=== PATIENT | female | born 1960 | race Caucasian/White ===

== ENCOUNTER → 2022-05-10 | Outpatient (CLI) | payer MEDICAID, SELFPAY ==
--- NOTE | 2022-05-10 11:17 | EKG12_ITS ---
Test Reason : PREOP Blood Pressure : / mmHG Vent. Rate : 097 BPM Atrial Rate : 097 BPM P-R Int : 168 ms QRS Dur : 070 ms QT Int : 374 ms P-R-T Axes : 060 -11 059 degrees QTc Int : 474 ms Normal sinus rhythm Normal ECG Confirmed by STACIE PETERSON, LEIGHA ([id number]), film editor supervisor DELPHINE RAMÍREZ ([id number]) on 05/11/2022 9:57:06 AM Referred By: EBEN PALMER Confirmed By:FRANCY QUINONES MD
--- NOTE | 2022-05-10 11:30 | CT_ITS ---
STUDY: CT RIGHT SHOULDER REASON FOR EXAM: Female, 62 years old. DISHA ESPARZA RADIATION DOSAGE (If Supplied By Facility): CTDIvol = ( 27.08 ) mGy, DLP = ( 676.55 ) mGycm TECHNIQUE: The patient was scanned in a multi detector CT scanner. High resolution transaxial imaging was performed without the administration of intravenous contrast material. Sagittal and coronal images were reconstructed. Individualized dose optimization techniques were used for this CT. COMPARISON: None. FINDINGS: Normal glenohumeral articulation. There is evidence of a nondisplaced fracture of the coracoid process of the scapula. There is an impacted comminuted fracture of the surgical neck of the proximal humerus with extension into the greater and lesser tuberosities. Normal coracoid process. Normal visualized lateral clavicle. Normal acromioclavicular articulation. There is a Type II morphology (curved), with a neutral orientation. Soft tissue swelling. Small amount of air is seen within the shoulder joint. CT/Extremity Upper without Contra IMPRESSION: Comminuted impacted fracture of the surgical neck of the humerus with extension to the greater and lesser tuberosities. Nondisplaced fracture of the anterior aspect of the coracoid process of the scapula. Electronically Signed: Jr Khan MD at 11:57 EDT ,
--- NOTE | 2022-05-10 11:52 | RAD_ITS ---
INDICATION: PREPROCEDURAL RESPIRATORY EXAMINATION EXAMINATION/TECHNIQUE: X-RAY - XR Chest 2 Views COMPARISON: None. Findings: Frontal and lateral views of the chest. LUNG PARENCHYMA: Thin linear bibasilar atelectasis versus scarring. Otherwise, no significant acute focal airspace disease or mass lesion. PLEURA: No pleural effusion. No pneumothorax. HEART/GREAT VESSELS: Cardiomediastinal silhouette is unremarkable. BONES: Severely comminuted displaced right humeral head fracture with possible associated glenohumeral subluxation. RAD/Chest PA and Lateral IMPRESSION: Thin linear bibasilar atelectasis versus scarring. Otherwise, no significant acute focal airspace disease. Right shoulder fracture with possible dislocation. Electronically Signed: Israel Vicente MD at 5:13 EDT ,
[2022-05-10 13:11] LABS: Absolute Lymphocyte Count 2.09 X10^3/uL (0.83-4.51); Basophil# 0.04 X10^3/uL; Basophil% 0.3 % (0-1); Eosinophil# 0.05 X10^3/uL; Eosinophils% 0.4 % (0-5); Hematocrit 39.5 % (37-47); Hemoglobin 12.6 g/dL (12.0-15.0); Lymphocyte # 2.09 X10^3/ul (0.83-4.51); Lymphocyte % 17.1 % (19-41); Mean Corp Hgb Conc 31.9 g/dL (32-36); Mean Corpuscular Hgb 29.2 pg (27.0-32.0); Mean Corpuscular Volume 91.4 fL (81-99); Mean Platelet Vol. 11.1 fl (6.2-12.0); Monocyte# 0.93 X10^3/uL; Monocyte% 7.6 % (0-10); NRBC Flagged by Analyzer 0 % (0-5); Neutrophil % 73.7 % (47-70); Platelet Count 459 K/mm3 (150-450); RBC Distribution Width CV 13.8 % (11.6-14.6); RBC Distribution Width SD 46.5 fl (35.1-43.9); Red Blood Count 4.32 M/mm3 (4.2-5.4); White Blood Count 12.2 K/mm3 (4.4-11.0)
[2022-05-10 13:47] LABS: Anion Gap 8 (5-15); BUN 12 mg/dL (7-18); BUN/Creat Ratio 15.9 RATIO (10-20); Calcium,Total 9.1 mg/dL (8.5-10.1); Chloride 96 mmol/L (98-107); Creatinine, Serum 0.76 mg/dL (0.55-1.02); EST Glomerular Filtration Rate 83 mL/min (>60); Est Glom Filt Rate - Afr Amer 101 mL/min (>60); Glucose 299 mg/dL (74-106); Potassium 3.4 mmol/L (3.5-5.1); Sodium Level 131 mmol/L (136-145)
[2022-05-10 13:50] LABS: Hemoglobin A1c 12.1 % (3.8-5.6)
== END | disposition home or self-care (01) ==
PROVIDERS: PCP Family Medicine; Visit Provider Physician Assistant Surgical
DX: Z01.810 Encounter for preprocedural cardiovascular examination (principal); S42.241A 4-part fracture of surgical neck of right humerus, initial encounter for closed fracture
CPT/HCPCS: 36415; 71046; 73200; 80048; 83036; 85025; 93005